=== PATIENT | female | born 1995 | race Caucasian/White ===

== ENCOUNTER 2019-03-17 22:29 | Emergency (ER) | payer OTHER ==
[~2019-03-17] VITALS: Ht 160 cm; Wt 54.4 kg
[2019-03-17 22:30] VITALS: BP 109/71
--- NOTE | 2019-03-17 22:30 | NUR ---
TO BED # 08 AMBULATORY
--- NOTE | 2019-03-17 22:40 | NUR ---
/ PRESENTS WITH FAMILY/FRIEND, C/O BURNING EPIGASTRIC PAIN, X2 DAYS. PT REFERRED TODAY BY MD TO R/O GALLSTONES. PT REPORTS INTERMITTENT DIARRHEA X1 WEEK, WHICH STARTED AGAIN THIS AM. PT REPORTS BEING UNABLE TO EAT DUE TO PAIN, LAST MEAL AT 1300. DENIES FEVER, N/V. AOX4, SKIN NORMAL WARM AND DRY, RR EVEN AND UNLABORED. BS HYPERACTIVE X4, ABD SOFT FLAT TENDER TO EPIGASTRIC AREA, DENIES LOWER QUADRANT TENDERNESS. HX HYPOTHYROID, GASTRITIS RX OMEPRAZOLE, SYNTHROID OTC IMODIUM
[2019-03-17] MEDS ORDERED: DICYCLOMINE HCL LIQUID 20 MG, ALUMINUM HYD/MAG/SIMETHICONE 30 ML, LIDOCAINE VISCOUS 2% ... PO ONE ×3 (23:05)
[2019-03-17] MEDS ORDERED: KETOROLAC 30 MG/ML VIAL IM ONE (23:05)
[2019-03-17 23:24] LABS: BASOPHILS % (AUTO) 0.2 % (0.0-2.0); EOSINOPHILS % (AUTO) 0.4 % (0.0-4.0); HEMATOCRIT 37.6 % (36-48); HEMOGLOBIN 12.5 g/dL (12.0-16.0); LYMPHOCYTES # (AUTO) 1.9 K/uL (2.5-16.5); LYMPHOCYTES % (AUTO) 16.7 % (20.5-51.1); MEAN CORPUSCULAR HEMOGLOBIN 31 pg (27-31); MEAN CORPUSCULAR HGB CONC 33 g/dL (33-37); MONOCYTES # (AUTO) 0.8 K/uL (0.8-1.0); MONOCYTES % (AUTO) 6.9 % (1.7-9.3); NEUTROPHILS # (AUTO) 8.8 K/uL (1.8-7.7); NEUTROPHILS % (AUTO) 75.8 % (42.2-75.2); PLATELET COUNT (AUTO) 227 K/uL (140-450); RED BLOOD CELL COUNT(AUTO) 4.04 MIL/uL (4.20-5.40); RED CELL DISTRIBUTION WIDTH 13.8 % (11.6-13.7); WHITE BLOOD COUNT (AUTO) 11.6 K/uL (4.8-10.8)
[2019-03-17 23:35] LABS: ANION GAP 10.5 (8-16); CREATININE 0.7 mg/dL (0.6-1.3); POTASSIUM 3.5 mmol/L (3.5-5.1)
[2019-03-17 23:39] LABS: ALBUMIN 3.9 g/dL (3.4-5.0); TOTAL BILIRUBIN 0.3 mg/dL (0.0-1.0)
[2019-03-17 23:55] VITALS: BP 108/74
--- NOTE | 2019-03-17 23:55 | NUR ---
Patient discharged with v/s stable. Written and verbal after care instructions given and explained. Patient verbalized understanding. Ambulatory with steady gait. All questions addressed prior to discharge. Advised to follow up with PMD.
== END 2019-03-17 23:55 | disposition home or self-care (01) ==
LOC: MED 22:29
DX: K29.70 Gastritis, unspecified, without bleeding (principal); K59.00 Constipation, unspecified; E03.9 Hypothyroidism, unspecified
CPT/HCPCS: 36415; 74018; 80053; 81002; 81025; 83690; 85025; 96372; 99284; J1885; Q0092